=== PATIENT | male | born 2000 | race Caucasian/White ===

== ENCOUNTER 2020-01-03 08:17 | Emergency (ER) | payer OTHER ==
--- NOTE | 2020-01-03 09:22 | RAD REPORT ---
EXAM DESCRIPTION: RAD - Elbow Left 3 View - 01/03/2020 8:59 am CLINICAL HISTORY: Left elbow pain status post trauma FINDINGS: Minimally displaced radial head/ neck fracture No dislocation
--- NOTE | 2020-01-03 09:26 | RAD REPORT ---
EXAM DESCRIPTION: RAD - Forearm Left - 01/03/2020 8:59 am CLINICAL HISTORY: Left forearm pain status post injury FINDINGS: Minimally displaced fracture radial head/neck No dislocation
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
[2020-01-03] MEDS ORDERED: HYDROCODONE/APAP 7.5/325 MG TAB ONE (09:39)
[2020-01-03 10:25] VITALS: BP 147/87; TEMP 98.1; O2SAT 100
== END 2020-01-03 10:21 | disposition home or self-care (01) ==
LOC: ER 08:17
PROC: 0PSJXZZ Reposition Left Radius, External Approach (ICD-10-PCS; principal; 2020-01-03)
DX: S52.122A Displaced fracture of head of left radius, initial encounter for closed fracture (principal); W01.0XXA Fall on same level from slipping, tripping and stumbling without subsequent striking against object, initial encounter; Y93.I9 Activity, other involving external motion; Y92.9 Unspecified place or not applicable
CPT/HCPCS: 99284

== ENCOUNTER 2021-03-31 09:54 | Emergency (ER) | payer BC, OTHER ==
[2021-03-31] MEDS ORDERED: ALBUTEROL 2.5 MG/3 ML NEB SOL ONE (10:37)
[2021-03-31] MEDS ORDERED: IPRATROPIUM BROM 0.5MG/2.5ML ONE (10:37)
[2021-03-31] MEDS ORDERED: predniSONE 20 MG TAB ONE (10:37)
--- NOTE | 2021-03-31 11:38 | EDPHYS ---
Physician Documentation [facility] Name: Lele Fleming Age: 21 yrs Sex: Male : 2000 Arrival Date: 03/31/2021 Time: 09:58 Bed 6 Private MD: ED Physician Meeta Ch HPI: 03/31 10:37 This 21 yrs old Male presents to ER via Ambulatory with complaints of Asthma ma2 Exacerbation. 10:37 The patient presents to the emergency department with wheezing, the patient was ma2 reported to have wheezes. Onset: The symptoms/episode began/occurred gradually, 1 day(s) ago. Associated signs and symptoms: Pertinent negatives: fever, palpitations, vomiting. Severity of symptoms: At their worst the symptoms were moderate in the emergency department the symptoms are unchanged. The patient has not experienced similar symptoms in the past. Historical: - Allergies: 10:17 No Known Allergies; vg1 - Home Meds: 10:17 None [Active]; vg1 - PMHx: 10:17 Asthma; vg1 - PSHx: 10:17 None; vg1 - Immunization history:: Adult Immunizations up to date, Client reports receiving the Jeffery \T\ Jeffery single-dose vaccine. - Social history:: Smoking status: Patient denies any tobacco usage or history of. Patient/guardian denies using alcohol, street drugs, The patient lives with family. - Family history:: not pertinent. ROS: 10:37 Constitutional: Negative for fever, chills, and weight loss. ma2 10:37 All other systems are negative. Exam: 10:37 Constitutional: This is a well developed, well nourished patient who is awake, alert, ma2 and in no acute distress. Head/Face: Normocephalic, atraumatic. Eyes: Pupils equal round and reactive to light, extra-ocular motions intact. Lids and lashes normal. Conjunctiva and sclera are non-icteric and not injected. Cornea within normal limits. Periorbital areas with no swelling, redness, or edema. ENT: Nares patent. No nasal discharge, no septal abnormalities noted. Tympanic membranes are normal and external auditory canals are clear. Oropharynx with no redness, swelling, or masses, exudates, or evidence of obstruction, uvula midline. Mucous membranes moist. Neck: Trachea midline, no thyromegaly or masses palpated, and no cervical lymphadenopathy. Supple, full range of motion without nuchal rigidity, or vertebral point tenderness. No Meningismus. Chest/axilla: Normal chest wall appearance and motion. Nontender with no deformity. No lesions are appreciated. Cardiovascular: Regular rate and rhythm with a normal S1 and S2. No gallops, murmurs, or rubs. Normal PMI, no JVD. No pulse deficits. Respiratory: Lungs have equal breath sounds bilaterally, clear to auscultation and percussion. No rales, rhonchi or wheezes noted. No increased work of breathing, no retractions or nasal flaring. Abdomen/GI: Soft, non-tender, with normal bowel sounds. No distension or tympany. No guarding or rebound. No evidence of tenderness throughout. Skin: Warm, dry with normal turgor. Normal color with no rashes, no lesions, and no evidence of cellulitis. MS/ Extremity: Pulses equal, no cyanosis. Neurovascular intact. Full, normal range of motion. Neuro: Awake and alert, GCS 15, oriented to person, place, time, and situation. Cranial nerves II-XII grossly intact. Motor strength 5/5 in all extremities. Sensory grossly intact. Cerebellar exam normal. Normal gait. Vital Signs: 10:15 BP 120 / 100; Pulse 100; Resp 14; Temp 99.2(TE); Pulse Ox 96% ; Weight 113.4 kg; Height vg1 6 ft. 3 in. (190.50 cm); Pain 4/10; 11:13 BP 122 / 88; Pulse 109; Resp 20; Pulse Ox 96% ; jh5 10:15 Body Mass Index 31.25 (113.40 kg, 190.50 cm) vg1 MDM: 10:08 Patient medically screened. hi2 10:37 Differential diagnosis: acute asthma, exercise-induced asthma, reactive airway, URI. ma2 11:37 Data reviewed: vital signs, nurses notes. Counseling: I had a detailed discussion with ma2 the patient and/or guardian regarding: the historical points, exam findings, and any diagnostic results supporting the discharge/admit diagnosis, the presence of at least one elevated blood pressure reading (>120/80) during this emergency department visit, the need for outpatient follow up. Response to treatment: the patient's symptoms have markedly improved after treatment. Administered Medications: 10:43 Drug: DuoNeb (albuterol 2.5 mg, ipratropium 0.5 mg) (3:1) (2.5 mg - 0.5 mg) 3 ml Route: jh5 Nebulizer; 10:43 Drug: predniSONE 40 mg Route: PO; jh5 Disposition Summary: 03/31/21 11:37 Discharge Ordered Location: Home ma2 Condition: Stable ma2 Diagnosis - Mild intermittent asthma ma2 Followup: ma2 - With: Private Physician - When: 24 Hours - Reason: Continuance of care Discharge Instructions: - Discharge Summary Sheet ma2 - Asthma Attack ma2 Forms: - Medication Reconciliation Form ma2 - Thank You Letter ma2 - Antibiotic Education ma2 - Prescription Opioid Use ma2 Prescriptions: - Albuterol Sulfate 2.5 mg /3 mL (0.083 %) Inhalation Solution for Nebulization - inhale 1 unit by NEBULIZATION route every 8 hours As needed; 1 box; Refills: 0, ma2 Product Selection Permitted - Prednisone 20 mg Oral Tablet - take 2 tablets by ORAL route once daily for 5 days; 10 tablet; Refills: 0, ma2 Product Selection Permitted - NEBULIZER machine - take 1 unit by NEBULIZATION route 3 times per day; 1 Unspecified; Refills: 0, ma2 Product Selection Permitted Signatures: Meeta Ch MD MD ma2 Megha Ayoub RN RN vg1 Annie Almeida RN RN jh5
--- NOTE | 2021-03-31 11:38 | ER ---
Nurse's Notes [facility] Name: Lele Fleming Age: 21 yrs Sex: Male : 2000 Arrival Date: 03/31/2021 Time: 09:58 Bed 6 Private MD: Diagnosis: Mild intermittent asthma Presentation: 03/31 10:15 Chief complaint: Patient states: Productive cough began yesterday. Pt states today vg1 about an hour ago began to feel shortness of breath/difficulty breathing. States took inhaler but feels like it isnt working. Pt also stated mid sternal chest pain. Coronavirus screen: Vaccine status: Patient reports receiving the 2nd dose of the covid vaccine. Client denies travel out of the [place] in the last 14 days. Ebola Screen: Patient negative for fever greater than or equal to 101.5 degrees Fahrenheit, and additional compatible Ebola Virus Disease symptoms. Initial Sepsis Screen: Does the patient meet any 2 criteria? No. Patient's initial sepsis screen is negative. Does the patient have a suspected source of infection? No. Patient's initial sepsis screen is negative. Risk Assessment: Do you want to hurt yourself or someone else? Patient reports no desire to harm self or others. Onset of symptoms was March 31, 2021. 10:15 Method Of Arrival: Ambulatory vg1 10:15 Acuity: TAD 3 vg1 Triage Assessment: 10:17 General: Appears in no apparent distress. comfortable, Behavior is calm, cooperative. vg1 Pain: Complains of pain in mid-sternal area Pain currently is 4 out of 10 on a pain scale. Respiratory: Airway is patent Respiratory effort is even, unlabored, Respiratory pattern is regular. Historical: - Allergies: 10:17 No Known Allergies; vg1 - Home Meds: 10:17 None [Active]; vg1 - PMHx: 10:17 Asthma; vg1 - PSHx: 10:17 None; vg1 - Immunization history:: Adult Immunizations up to date, Client reports receiving the Jeffery \T\ Jeffery single-dose vaccine. - Social history:: Smoking status: Patient denies any tobacco usage or history of. Patient/guardian denies using alcohol, street drugs, The patient lives with family. - Family history:: not pertinent. Screenin:20 Abuse screen: Denies threats or abuse. Denies injuries from another. Nutritional 5 screening: No deficits noted. Tuberculosis screening: No symptoms or risk factors identified. Fall Risk None identified. Assessment: 10:17 General: Appears in no apparent distress. well groomed, Behavior is calm, cooperative, jh5 appropriate for age. Neuro: No deficits noted. Level of Consciousness is awake, alert, obeys commands, Oriented to person, place, time, situation, Speech is normal. Cardiovascular: Capillary refill < 3 seconds Patient's skin is warm and dry. Respiratory: Reports shortness of breath at rest on exertion Airway is patent Trachea midline Respiratory effort is even, labored, Respiratory pattern is regular, symmetrical. 10:19 Pain: Complains of pain in chest. 5 Vital Signs: 10:15 BP 120 / 100; Pulse 100; Resp 14; Temp 99.2(TE); Pulse Ox 96% ; Weight 113.4 kg; Height vg1 6 ft. 3 in. (190.50 cm); Pain 4/10; 11:13 BP 122 / 88; Pulse 109; Resp 20; Pulse Ox 96% ; jh5 10:15 Body Mass Index 31.25 (113.40 kg, 190.50 cm) vg1 ED Course: 09:58 Patient arrived in ED. ds1 10:08 Meeta Ch MD is Attending Physician. wi2 10:17 Annie Almeida, LYNN is Primary Nurse. 5 10:17 Triage completed. vg1 10:17 Arm band placed on. vg1 10:20 Patient has correct armband on for positive identification. Bed in low position. Call [facility] light in reach. Side rails up X 1. 11:48 No provider procedures requiring assistance completed. Patient did not have IV access [facility] during this emergency room visit. Administered Medications: 10:43 Drug: DuoNeb (albuterol 2.5 mg, ipratropium 0.5 mg) (3:1) (2.5 mg - 0.5 mg) 3 ml Route: 5 Nebulizer; 10:43 Drug: predniSONE 40 mg Route: PO; 5 Outcome: 11:37 Discharge ordered by . ma2 11:48 Discharged to home ambulatory, with family. 5 11:48 Condition: good 11:48 Discharge instructions given to patient, family, Instructed on discharge instructions, follow up and referral plans. medication usage, safety practices, Demonstrated understanding of instructions, follow-up care, medications, Prescriptions given X 3. 11:49 Patient left the ED. [facility] Signatures: Lisseth Luna Mohammad, MD MD ma2 Megha Ayoub, RN RN vg1 Annie Almeida RN RN jh5 Corrections: (The following items were deleted from the chart) 10:20 10:17 Pain: Denies pain. [place] [id number]
[2021-03-31 13:04] VITALS: TEMP 99.2; O2SAT 96
[2021-03-31 13:14] VITALS: BP 122/88
--- OUTSIDE RECORDS SUMMARY | 2021-04-03 18:58 | XMS REPORT | Continuity of Care Document ---
:2000 Author Organization [facility] Address [address] [place] [address] Care Team Providers Name Role Phone Fiona Payne Attending Clinician Fiona DUARTE Attending Clinician Unavailable Doctor Unassigned, Name Attending Clinician Unavailable Payers Payer Name Policy Type Policy Number Effective Date Expiration Date S alicia [employer] [id number] 2020 00:00:00 Problems Condition Condition Condition Status Onset Resolution Last Treating Co mments Source Name Details Category Date Date Treatment Clinician Date Depression Depression Disease Active U nivers 6- ity of 00:00: [address] Allergies, Adverse Reactions, Alerts Allergy Allergy Status Severity Reaction(s) Onset Inactive Treating Comm ents Source Name Type Date Date Clinician NO KNOWN Drug Active Univers ALLERGIE Class ity of [facility] Social History Social Habit Start Date Stop Date Quantity Comments Source Sex Assigned At [facility] Exposure to Not sure [facility] SARS-CoV-2 (event) Medica l Branch Tobacco use and 2020-02-06 2020-02-06 Never used [facility] exposure 00:00:00 00:00:00 Medical [place] Smoking Status Start Date Stop Date Source Never smoker [facility] Medications Ordered Filled Start Stop Current Ordering Indication Dosage Frequency Signature Comments Components Source Medication Medication Date Date Medication? Clinician (SIG) Name Name SERTraline 2020-0 Yes 50mg Take 50 mg U nivers (ZOLOFT) 50 8-18 by mouth ity of mg tablet 20:07: daily. [address] SERTraline 2020-0 Yes 50mg Take 50 mg U nivers (ZOLOFT) 50 8-18 by mouth ity of mg tablet 20:07: daily. [address] SERTraline 2020-0 Yes 50mg Take 50 mg U nivers (ZOLOFT) 50 8-18 by mouth ity of mg tablet 20:07: daily. [address] SERTraline 2020-0 Yes 50mg Take 50 mg U nivers (ZOLOFT) 50 8-18 by mouth ity of mg tablet 20:07: daily. [address] SERTraline 2020-0 Yes 50mg Take 50 mg U nivers (ZOLOFT) 50 8-18 by mouth ity of mg tablet 20:07: daily. [address] SERTraline 2020-0 Yes 50mg Take 50 mg U nivers (ZOLOFT) 50 8-18 by mouth ity of mg tablet 20:07: daily. [address] SERTraline 2020-0 Yes 50mg Take 50 mg U nivers (ZOLOFT) 50 8-18 by mouth ity of mg tablet 20:07: daily. [address] SERTraline 2020-0 Yes 50mg Take 50 mg U nivers (ZOLOFT) 50 8-18 by mouth ity of mg tablet 20:07: daily. [address] SERTraline 2020-0 Yes 50mg Take 50 mg U nivers (ZOLOFT) 50 8-18 by mouth ity of mg tablet 20:07: daily. [address] SERTraline 2020-0 Yes 50mg Take 50 mg U nivers (ZOLOFT) 50 8-18 by mouth ity of mg tablet 20:07: daily. [address] SERTraline 2020-0 Yes 50mg Take 50 mg U nivers (ZOLOFT) 50 8-18 by mouth ity of mg tablet 20:07: daily. [address] ibuprofen 2020-0 Yes TK 1 T PO Uni vers 800 mg 8-14 Q 8 H PRN ity of tablet 00:00: FOR PAIN [place] [address] CONTROL Medical TKA WITH Branch FOOD ibuprofen 2020-0 Yes TK 1 T PO Uni vers 800 mg 8-14 Q 8 H PRN ity of tablet 00:00: FOR PAIN [place] [address] CONTROL Medical TKA WITH Branch FOOD ibuprofen 2020-0 Yes TK 1 T PO Uni vers 800 mg 8-14 Q 8 H PRN ity of tablet 00:00: FOR PAIN [place] [address] CONTROL Medical TKA WITH Branch FOOD ibuprofen 2020-0 Yes TK 1 T PO Uni vers 800 mg 8-14 Q 8 H PRN ity of tablet 00:00: FOR PAIN [place] [address] CONTROL Medical TKA WITH Branch FOOD ibuprofen 2020-0 Yes TK 1 T PO Uni vers 800 mg 8-14 Q 8 H PRN ity of tablet 00:00: FOR PAIN CONTROL Medical TKA WITH Branch FOOD ibuprofen 2020-0 Yes TK 1 T PO Uni vers 800 mg 8-14 Q 8 H PRN ity of tablet 00:00: FOR PAIN CONTROL Medical TKA WITH Branch FOOD ibuprofen 2020-0 Yes TK 1 T PO Uni vers 800 mg 8-14 Q 8 H PRN ity of tablet 00:00: FOR PAIN CONTROL Medical TKA WITH Branch FOOD ibuprofen 2020-0 Yes TK 1 T PO Uni vers 800 mg 8-14 Q 8 H PRN ity of tablet 00:00: FOR PAIN CONTROL Medical TKA WITH Branch FOOD ibuprofen 2020-0 Yes TK 1 T PO Uni vers 800 mg 8-14 Q 8 H PRN ity of tablet 00:00: FOR PAIN CONTROL Medical TKA WITH Branch FOOD ibuprofen 2020-0 Yes TK 1 T PO Uni vers 800 mg 8-14 Q 8 H PRN ity of tablet 00:00: FOR PAIN CONTROL Medical TKA WITH Branch FOOD ibuprofen 2020-0 Yes TK 1 T PO Uni vers 800 mg 8-14 Q 8 H PRN ity of tablet 00:00: FOR PAIN CONTROL Medical TKA WITH Branch FOOD VENTOLIN 2017 Yes [id number] INHALE 3 Univers HFA 90 2-04 PUFFS ity of mcg/actuati 00:00: EVERY 4 Abdifatah as on inhaler 00 HOURS Medic al NEEDED FOR Branch WHEEZING OR SHORTNESS OF BREATH FOR UP TO 7 DAYS VENTOLIN 2017 Yes [id number] INHALE 3 Univers HFA 90 2-04 PUFFS ity of mcg/actuati 00:00: EVERY 4 Abdifatah as on inhaler 00 HOURS Medic al NEEDED FOR Branch WHEEZING OR SHORTNESS OF BREATH FOR UP TO 7 DAYS VENTOLIN 2017- Yes [id number] INHALE 3 Univers HFA 90 2-04 PUFFS ity of mcg/actuati 00:00: EVERY 4 Abdifatah as on inhaler 00 HOURS Medic al NEEDED FOR Branch WHEEZING OR SHORTNESS OF BREATH FOR UP TO 7 DAYS VENTOLIN 2017- Yes [id number] INHALE 3 Univers HFA 90 2-04 PUFFS ity of mcg/actuati 00:00: EVERY 4 Abdifatah as on inhaler 00 HOURS Medic al NEEDED FOR Branch WHEEZING OR SHORTNESS OF BREATH FOR UP TO 7 DAYS [facility] 2017 Yes [id number] INHALE 3 Univers HFA 90 2-04 PUFFS ity of mcg/actuati 00:00: EVERY 4 Abdifatah as on inhaler 00 HOURS Medic al NEEDED FOR Branch WHEEZING OR SHORTNESS OF BREATH FOR UP TO 7 DAYS [facility] 2017 Yes [id number] INHALE 3 Univers HFA 90 2-04 PUFFS ity of mcg/actuati 00:00: EVERY 4 Abdifatah as on inhaler 00 HOURS Medic al NEEDED FOR Branch WHEEZING OR SHORTNESS OF BREATH FOR UP TO 7 DAYS [facility] 2017 Yes [id number] INHALE 3 Univers HFA 90 2-04 PUFFS ity of mcg/actuati 00:00: EVERY 4 Abdifatah as on inhaler 00 HOURS Medic al NEEDED FOR Branch WHEEZING OR SHORTNESS OF BREATH FOR UP TO 7 DAYS [facility] 2017 Yes [id number] INHALE 3 Univers HFA 90 2-04 PUFFS ity of mcg/actuati 00:00: EVERY 4 Abdifatah as on inhaler 00 HOURS Medic al NEEDED FOR Branch WHEEZING OR SHORTNESS OF BREATH FOR UP TO 7 DAYS [facility] 2017 Yes [id number] INHALE 3 Univers HFA 90 2-04 PUFFS ity of mcg/actuati 00:00: EVERY 4 Abdifatah as on inhaler 00 HOURS Medic al NEEDED FOR Branch WHEEZING OR SHORTNESS OF BREATH FOR UP TO 7 DAYS [facility] 2017 Yes [id number] INHALE 3 Univers HFA 90 2-04 PUFFS ity of mcg/actuati 00:00: EVERY 4 Abdifatah as on inhaler 00 HOURS Medic al NEEDED FOR Branch WHEEZING OR SHORTNESS OF BREATH FOR UP TO 7 DAYS [facility] 2017 Yes [id number] INHALE 3 Univers HFA 90 2-04 PUFFS ity of mcg/actuati 00:00: EVERY 4 Abdifatah as on inhaler 00 HOURS Medic al NEEDED FOR Branch WHEEZING OR SHORTNESS OF BREATH FOR UP TO 7 DAYS OLANZapine 2016-0 Yes Univers (ZYPREXA) 4-29 ity of 20 mg 00:00: [place] tablet 00 Medical Branch OLANZapine 2016-0 Yes Univers (ZYPREXA) 4-29 ity of 20 mg 00:00: [place] tablet 00 Medical Branch OLANZapine 2016-0 Yes Univers (ZYPREXA) 4-29 ity of 20 mg 00:00: [place] tablet 00 Medical Branch OLANZapine 2016-0 Yes Univers (ZYPREXA) 4-29 ity of 20 mg 00:00: [place] tablet 00 Medical Branch OLANZapine 2016-0 Yes Univers (ZYPREXA) 4-29 ity of 20 mg 00:00: [place] tablet 00 Medical Branch OLANZapine 2016-0 Yes Univers (ZYPREXA) 4-29 ity of 20 mg 00:00: [place] tablet 00 Medical Branch OLANZapine 2016-0 Yes Univers (ZYPREXA) 4-29 ity of 20 mg 00:00: [place] tablet 00 Medical Branch OLANZapine 2016-0 Yes Univers (ZYPREXA) 4-29 ity of 20 mg 00:00: [place] tablet 00 Medical Branch OLANZapine 2016-0 Yes Univers (ZYPREXA) 4-29 ity of 20 mg 00:00: [place] tablet 00 Medical Branch OLANZapine 2016-0 Yes Univers (ZYPREXA) 4-29 ity of 20 mg 00:00: [place] tablet 00 Medical Branch OLANZapine 2016-0 Yes Univers (ZYPREXA) 4-29 ity of 20 mg 00:00: [place] tablet 00 Medical Branch benztropine 2016-0 Yes Univer s (COGENTIN) 4-28 ity of 2 mg tablet 00:00: [place] [facility] Branch benztropine 2016-0 Yes Univer s (COGENTIN) 4-28 ity of 2 mg tablet 00:00: [place] [facility] Branch benztropine 2016-0 Yes Univer s (COGENTIN) 4-28 ity of 2 mg tablet 00:00: [place] [facility] Branch benztropine 2016-0 Yes Univer s (COGENTIN) 4-28 ity of 2 mg tablet 00:00: [place] [facility] Branch benztropine 2016-0 Yes Univer s (COGENTIN) 4-28 ity of 2 mg tablet 00:00: [place] [facility] Branch benztropine 2016-0 Yes Univer s (COGENTIN) 4-28 ity of 2 mg tablet 00:00: [place] [facility] benztropine 2016-0 Yes Univer s (COGENTIN) 4-28 ity of 2 mg tablet 00:00: [place] [facility] Branch benztropine 2016-0 Yes Univer s (COGENTIN) 4-28 ity of 2 mg tablet 00:00: [place] 00 [facility] benztropine 2016 Yes Univer s (COGENTIN) 4-28 ity of 2 mg tablet 00:00: [place] [facility] benztropine 2016- Yes Univer s (COGENTIN) 4-28 ity of 2 mg tablet 00:00: [address] benztropine 2016 Yes Univer s (COGENTIN) 4-28 ity of 2 mg tablet 00:00: [address] Immunizations Ordered Immunization Filled Immunization Date Status Commen ts Source Name Name Influenza Virus 2017-05-31 Completed Universit y of Vaccine Quad IM 3+ 00:00:00 [facility] Influenza Virus 2017-05-31 Completed Universit y of Vaccine Quad IM 3+ 00:00:00 [facility] Influenza Virus 2017-05-31 Completed Universit y of Vaccine Quad IM 3+ 00:00:00 [facility] Influenza Virus 2017-05-31 Completed Universit y of Vaccine Quad IM 3+ 00:00:00 [facility] Influenza Virus 2017-05-31 Completed Universit y of Vaccine Quad IM 3+ 00:00:00 [facility] Influenza Virus 2017-05-31 Completed Universit y of Vaccine Quad IM 3+ 00:00:00 [facility] Influenza Virus 2017-05-31 Completed Universit y of Vaccine Quad IM 3+ 00:00:00 [facility] Influenza Virus 2017-05-31 Completed Universit y of Vaccine Quad IM 3+ 00:00:00 [facility] Influenza Virus 2017-05-31 Completed Universit y of Vaccine Quad IM 3+ 00:00:00 [facility] Influenza Virus 2017-05-31 Completed Universit y of Vaccine Quad IM 3+ 00:00:00 [facility] Influenza Virus 2017-05-31 Completed Universit y of Vaccine Quad IM 3+ 00:00:00 [facility] HPV9 2015-10-23 Completed University of 00:00:00 [facility] Meningococcal 2015-10-23 Completed University [facility] 00:00:00 [facility] arpan (groups A, C, Y and Branc h W-135) conjugate vaccine (MCV4P) HEPATITIS A 2015-10-23 Completed University of 00:00:00 [facility] Meningococcal B, OMV 2015-10-23 Completed Univ [facility] 00:00:00 [facility] HPV9 2015-10-23 Completed University of 00:00:[address] [facility] Branch Meningococcal 2015-10-23 Completed University of Polysaccharide 00:00:00 [place] Med[facility] arpan (groups A, C, Y and Branc h W-135) conjugate vaccine (MCV4P) HEPATITIS A 2015-10-23 Completed University of 00:00:[address] [facility] Meningococcal B, OMV 2015-10-23 Completed Univ ersity of 00:00:00 [place] [facility] HPV9 2015-10-23 Completed University of 00:00:[address] [facility] Meningococcal 2015-10-23 Completed University of Polysaccharide 00:00:00 [place] Medi arpan (groups A, C, Y and Branc h W-135) conjugate vaccine (MCV4P) HEPATITIS A 2015-10-23 Completed University of 00:00:[address] [facility] Meningococcal B, OMV 2015-10-23 Completed Univ ersity of 00:00:[address] [facility] HPV9 2015-10-23 Completed University of 00:00:[address] [facility] Meningococcal 2015-10-23 Completed University of Polysaccharide 00:00:00 [place] Medi arpan (groups A, C, Y and Branc h W-135) conjugate vaccine (MCV4P) HEPATITIS A 2015-10-23 Completed University of 00:00:[address] [facility] Meningococcal B, OMV 2015-10-23 Completed Univ ersity of 00:00:[address] [facility] HPV9 2015-10-23 Completed University of 00:00:[address] [facility] Meningococcal 2015-10-23 Completed University of Polysaccharide 00:00:00 [place] Medi arpan (groups A, C, Y and Branc h W-135) conjugate vaccine (MCV4P) HEPATITIS A 2015-10-23 Completed University of 00:00:[address] [facility] Meningococcal B, OMV 2015-10-23 Completed Univ ersity of 00:00:[address] [facility] HPV9 2015-10-23 Completed University of 00:00:[address] [facility] Meningococcal 2015-10-23 Completed University of Polysaccharide 00:00:00 [place] Medi arpan (groups A, C, Y and Branc h W-135) conjugate vaccine (MCV4P) HEPATITIS A 2015-10-23 Completed University of 00:00:[address] [facility] Meningococcal B, OMV 2015-10-23 Completed Univ ersity of 00:00:[address] [facility] HPV9 2015-10-23 Completed University of 00:00:00 [facility] Meningococcal 2015-10-23 Completed University of Polysaccharide 00:00:00 [place] Medi arpan (groups A, C, Y and Branc h W-135) conjugate vaccine (MCV4P) HEPATITIS A 2015-10-23 Completed University of 00:00:00 [facility] Meningococcal B, OMV 2015-10-23 Completed Univ ersity of 00:00:[address] [facility] HPV9 2015-10-23 Completed University of 00:00:[address] [facility] Meningococcal 2015-10-23 Completed University of Polysaccharide 00:00:00 [place] Medi arpan (groups A, C, Y and Branc h W-135) conjugate vaccine (MCV4P) HEPATITIS A 2015-10-23 Completed University of 00:00:00 [facility] Meningococcal B, OMV 2015-10-23 Completed Univ ersity of 00:00:[address] [facility] HPV9 2015-10-23 Completed University of 00:00:00 [facility] Meningococcal 2015-10-23 Completed University of Polysaccharide 00:00:00 [place] Medi arpan (groups A, C, Y and Branc h W-135) conjugate vaccine (MCV4P) HEPATITIS A 2015-10-23 Completed University of 00:00:00 [facility] Meningococcal B, OMV 2015-10-23 Completed Univ ersity of 00:00:[address] [facility] HPV9 2015-10-23 Completed University of 00:00:00 [facility] Meningococcal 2015-10-23 Completed University of Polysaccharide 00:00:00 [place] Medi arpan (groups A, C, Y and Branc h W-135) conjugate vaccine (MCV4P) HEPATITIS A 2015-10-23 Completed University of 00:00:00 [facility] Meningococcal B, OMV 2015-10-23 Completed Univ ersity of 00:00:[address] [facility] HPV9 2015-10-23 Completed University of 00:00:00 [facility] Meningococcal 2015-10-23 Completed University of Polysaccharide 00:00:00 [place] Med[facility] arpan (groups A, C, Y and Branc h W-135) conjugate vaccine (MCV4P) HEPATITIS A 2015-10-23 Completed University of 00:00:[address] [facility] Meningococcal B, OMV 2015-10-23 Completed Univ ersity of 00:00:00 [place] [facility] HEPATITIS A 2014-11-20 Completed University of 00:00:00 [place] [facility] HPV 2014-11-20 Completed University of 00:00:00 [place] [facility] HEPATITIS A 2014-11-20 Completed University of 00:00:00 [place] [facility] HPV 2014-11-20 Completed University of 00:00:00 [place] [facility] HEPATITIS A 2014-11-20 Completed University of 00:00:00 [place] [facility] HPV 2014-11-20 Completed University of 00:00:00 [place] [facility] HEPATITIS A 2014-11-20 Completed University of 00:00:00 [place] [facility] HPV 2014-11-20 Completed University of 00:00:00 [place] [facility] HEPATITIS A 2014-11-20 Completed University of 00:00:00 [place] [facility] HPV 2014-11-20 Completed University of 00:00:00 [place] [facility] HEPATITIS A 2014-11-20 Completed University of 00:00:00 [place] [facility] HPV 2014-11-20 Completed University of 00:00:00 [place] [facility] HEPATITIS A 2014-11-20 Completed University of 00:00:00 [place] [facility] HPV 2014-11-20 Completed University of 00:00:00 [place] [facility] HEPATITIS A 2014-11-20 Completed University of 00:00:00 [place] [facility] HPV 2014-11-20 Completed University of 00:00:00 [place] [facility] HEPATITIS A 2014-11-20 Completed University of 00:00:00 [place] [facility] HPV 2014-11-20 Completed University of 00:00:00 [place] [facility] HEPATITIS A 2014-11-20 Completed University of 00:00:00 [place] [facility] HPV 2014-11-20 Completed University of 00:00:00 [place] [facility] HEPATITIS A 2014-11-20 Completed University of 00:00:00 [place] [facility] HPV 2014-11-20 Completed University of 00:00:[address] [facility] Vital Signs Vital Name Observation Time Observation Value Comments Source Systolic blood 2020-02-06 18:51:00 139 mm[Hg] [facility]iver [facility]ity of [place] pressure Medical Branch Diastolic blood 2020-02-06 18:51:00 87 mm[Hg] Unive rsity [facility] pressure Medical Branch Heart rate 2020-02-06 18:51:00 109 /min [facility] Body height 2020-02-06 18:51:00 190.5 cm [facility] Body weight 2020-02-06 18:51:00 116.574 kg Universi ty [facility] [place] [facility] BMI 2020-02-06 18:51:00 32.12 kg/m2 [facility] [place] [facility] Systolic blood 2020-01-14 18:41:00 137 mm[Hg] Univer sity of [place] pressure Medical Branch Diastolic blood 2020-01-14 18:41:00 86 mm[Hg] Unive rsity of [place] pressure [facility] Branch Heart rate 2020-01-14 18:41:00 111 /min Universi ty of [facility] Body height 2020-01-14 18:30:00 190.5 cm Universi ty [facility] [place] [facility] Body weight 2020-01-14 18:30:00 116.574 kg Universi ty [facility] [place] [facility] BMI 2020-01-14 18:30:00 32.12 kg/m2 Universi ty of [facility] Systolic blood 2020-01-07 20:06:00 135 mm[Hg] Univer sity of [place] pressure Medical Branch Diastolic blood 2020-01-07 20:06:00 82 mm[Hg] Unive rsity of [facility] Branch Heart rate 2020-01-07 20:06:00 90 /min Universi ty [facility] [place] [facility] Body height 2020-01-07 20:06:00 190.5 cm [facility]i [facility] [place] [facility] Body weight 2020-01-07 20:06:00 116.574 kg stated Universi ty of [facility] BMI 2020-01-07 20:06:00 32.12 kg/m2 Universi ty of [facility] Procedures Procedure Date / Time Performed Performing Clinician Sourc e XR ELBOW <3 VW LEFT 2020-02-06 19:07:39 Mono Duarte Universi ty of [facility] XR ELBOW <3 VW LEFT 2020-01-14 18:41:10 Mono Duarte Universi ty [facility] EXTERNAL PROVIDER 2020-01-09 05:01:00 Doctor Unassigned, No Univ [facility] RECORDS Name Medical Branch Encounters Start End Encounter Admission Attending Care Care Encounter Source Date/Time Date/Time Type Type Clinicians Facility Department ID 2020-08-29 2020-08-29 Outpatient [facility] [id number] Univers 14:50:00 14:50:00 [id number] ity [facility] 2020-08-29 2020-08-29 Outpatient [facility] [id number] Univers 14:50:00 14:50:00 ity of [facility] 2020-08-08 2020-08-08 Outpatient [facility] [id number] Univers 14:55:00 14:55:00 ity of [facility] 2020-02-06 2020-02-06 [facility] [id number] Univers 14:07:38 23:59:00 [facility] [id number] ity of Surgical [id number] Abdifatah as Specialti [id number] Me dical es 8[address] [facility] 2020-02-06 2020-02-06 Office [facility] [id number] Univers 13:42:49 13:57:49 [facility] [id number] it y of Surgical [id number] Abdifatah as Specialti [id number] Me dical es 198 [facility] 2020-02-06 2020-02-06 Outpatient R [facility] [id number] Univers 13:45:00 13:45:00 MONO [id number] ity of [facility] 2020-02-06 2020-02-06 Outpatient [facility] [id number] Univers 13:45:00 13:45:00 MONO ity [facility] 2020-02-06 2020-02-06 Letter [facility] [id number] Univers 00:00:00 00:00:00 (Out) [facility] [id number] it y of Surgical [id number] Abdifatah as Specialti [id number] Me dical es 198 [facility] 2020-01-14 2020-01-14 [facility] [id number] Univers 13:41:08 23:59:00 [facility]counter [facility] [id number] ity of Surgical [id number] Abdifatah as Specialti [id number] Me dical es 809 [facility] 2020-01-14 2020-01-14 Office [facility] [id number] Univers 13:29:01 13:44:01 Visit [facility] [id number] it y of Surgical [id number] Abdifatah as Specialti [id number] Oh dical es 198 [facility] 2020-01-14 2020-01-14 Outpatient R GERALD [facility] [id number] Univers 13:30:00 13:30:00 MONO [id number] ity [facility] 2020-01-14 2020-01-14 [facility] [id number] Univers 13:30:00 13:30:00 [facility] 2020-01-14 2020-01-14 Letter Gerald [facility] [id number] Univers 00:00:00 00:00:00 (Out) [facility] [id number] it y of Surgical [id number] Abdifatah as Specialti [id number] Oh dical es 198 [facility] 2020-01-09 2020-01-09 Orders Doctor BRAD [id number] Univers 00:00:00 00:00:00 Only Unassigned, CHAVO [id number] ity of [place] [facility] [id number] Abdifatah as [id number] [address] 2020-01-07 2020-01-[address] [facility] [id number] Univers 14:44:46 16:05:00 Visit [facility] [id number] it y of Surgical [id number] Abdifatah as Specialti [id number] Oh dical es 198 [facility] 2020-01-07 2020-01-07 [facility] [id number] Univers 14:30:00 14:30:00 [facility] Results Test Description Test Time Test Comments Results Result Sour e Comments XR ELBOW <3 VW 2020-02-06 His radial head Unive rsity of LEFT 19:18:53 fracture shows [facility] excellent signs Branch of callus formation there was no displacement his radial capitellar joint has a normal spacing. XR ELBOW <3 VW 2020-01-14 Radial head Universit y of LEFT 18:55:52 fracture remains [place] [facility] in normal Branch alignment he has a balance between the radial head and the capitellum
== END 2021-03-31 11:49 | disposition home or self-care (01) ==
LOC: ER 09:54
DX: J45.20 Mild intermittent asthma, uncomplicated (principal)
CPT/HCPCS: 94640; 99284; J7512

== ENCOUNTER 2022-02-17 13:28 | Emergency (ER) | payer BC, OTHER ==
--- OUTSIDE RECORDS SUMMARY | 2022-02-17 13:33 | XMS REPORT | Continuity of Care Document ---
:[address] [facility] t Address [address] [place] [address] Care Team Providers Name Role Phone Lesli Payne Attending Clinician LESLI DUARTE Attending Clinician Unavailable Doctor Unassigned, [place] Attending Clinician Unavailable Payers Payer Name Policy Type Policy Number Effective Date Expiration Date S alicia [employer] [id number] 2020 00:00:00 Problems Condition Condition Condition Status Onset Resolution Last Treating Co mments Source Name Details Category Date Date Treatment Clinician Date Depression Depression Disease Active U nivers 6-03 ity of 00:00: [address] Allergies, Adverse Reactions, Alerts Allergy Allergy Status Severity Reaction(s) Onset Inactive Treating Comm ents Source Name Type Date Date Clinician NO KNOWN Drug Active [facility] ALLERGIE Class ity of [facility] Social History Social Habit Start Date Stop Date Quantity Comments Source Sex Assigned At [facility] Branch Exposure to Not sure [facility] SARS-CoV-2 (event) Medica l Branch Tobacco use and 2020-02-06 2020-02-06 Never used [facility] exposure 00:00:00 00:00:00 [facility] Smoking Status Start Date Stop Date Source Never smoker [facility] Medications Ordered Filled Start Stop Current Ordering Indication Dosage Frequency Signature Comments Components Source Medication Medication Date Date Medication? Clinician (SIG) Name Name SERTraline 2020-0 Yes 50mg Take 50 mg U nivers (ZOLOFT) 50 8-18 by mouth ity of mg tablet 20:07: daily. [address] SERTraline 2020-0 Yes 50mg Take 50 mg U nivers (ZOLOFT) 50 8-18 by mouth ity of mg tablet 20:07: daily. [address] SERTraline 2020-0 Yes 50mg Take 50 mg U nivers (ZOLOFT) 50 8-18 by mouth ity of mg tablet 20:07: daily. [address] SERTraline 2020-0 Yes 50mg Take 50 mg U nivers (ZOLOFT) 50 8-18 by mouth ity of mg tablet 20:07: daily. [address] SERTraline 2020-0 Yes 50mg Take 50 mg U nivers (ZOLOFT) 50 8-18 by mouth ity of mg tablet 20:07: daily. [address] SERTraline 2020-0 Yes 50mg Take 50 mg U nivers (ZOLOFT) 50 8-18 by mouth ity of mg tablet 20:07: daily. [address] SERTraline 2020-0 Yes 50mg Take 50 mg U nivers (ZOLOFT) 50 8-18 by mouth ity of mg tablet 20:07: daily. [address] SERTraline 2020-0 Yes 50mg Take 50 mg U nivers (ZOLOFT) 50 8-18 by mouth ity of mg tablet 20:07: daily. [address] SERTraline 2020-0 Yes 50mg Take 50 mg U nivers (ZOLOFT) 50 8-18 by mouth ity of mg tablet 20:07: daily. [address] SERTraline 2020-0 Yes 50mg Take 50 mg U nivers (ZOLOFT) 50 8-18 by mouth ity of mg tablet 20:07: daily. [address] SERTraline 2020-0 Yes 50mg Take 50 mg U nivers (ZOLOFT) 50 8-18 by mouth ity of mg tablet 20:07: daily. [address] ibuprofen 2020-0 Yes TK 1 T PO Uni vers 800 mg 8-14 Q 8 H PRN ity of tablet 00:00: FOR PAIN [place] CONTROL Medical TKA WITH Branch FOOD ibuprofen 2020-0 Yes TK 1 T PO Uni vers 800 mg 8-14 Q 8 H PRN ity of tablet 00:00: FOR PAIN [place] [address] CONTROL Medical TKA WITH Branch FOOD ibuprofen 2020-0 Yes TK 1 T PO Uni vers 800 mg 8-14 Q 8 H PRN ity of tablet 00:00: FOR PAIN [place] [address] CONTROL Medical TKA WITH Branch FOOD ibuprofen [...] CONTROL Medical TKA WITH Branch FOOD VENTOLIN 2016-05 Yes [id number] INHALE 3 Univers HFA 90 2-04 PUFFS ity of mcg/actuati 00:00: EVERY 4 Abdifatah as on inhaler 00 HOURS Medic al NEEDED FOR Branch WHEEZING OR SHORTNESS OF BREATH FOR UP TO 7 DAYS VENTOLIN 2017 Yes [id number] INHALE 3 Univers HFA 90 2-04 PUFFS ity of mcg/actuati 00:00: EVERY 4 Badifatah as on inhaler 00 HOURS Medic al NEEDED FOR Branch WHEEZING OR SHORTNESS OF BREATH FOR UP TO 7 DAYS VENTOLIN 2017- Yes [id number] INHALE 3 Univers HFA 90 2-04 PUFFS ity of mcg/actuati 00:00: EVERY 4 Abdifatah as on inhaler 00 HOURS Medic al NEEDED FOR Branch WHEEZING OR SHORTNESS OF BREATH FOR UP TO 7 DAYS VENTOLIN 2017 Yes [id number] INHALE 3 Univers HFA 90 2-04 PUFFS ity of mcg/actuati 00:00: EVERY 4 Abdifatah as on inhaler 00 HOURS Medic al NEEDED FOR Branch WHEEZING OR SHORTNESS OF BREATH FOR UP TO 7 DAYS [facility] 2017 Yes [id number] INHALE 3 Univers HFA 90 2-04 PUFFS ity of mcg/actuati 00:00: EVERY 4 Abdifatah as on inhaler 00 HOURS Medic al NEEDED FOR Branch WHEEZING OR SHORTNESS OF BREATH FOR UP TO 7 DAYS [facility] 2017 Yes [id number] INHALE 3 Univers HFA 90 2-04 PUFFS ity of mcg/actuati 00:00: EVERY 4 Abdifatah as on inhaler 00 HOURS Medic al NEEDED FOR Branch WHEEZING OR SHORTNESS OF BREATH FOR UP TO 7 DAYS [facility] 2017 Yes [id number] INHALE 3 Univers HFA 90 2-04 PUFFS ity of mcg/actuati 00:00: EVERY 4 Abdifatah as on inhaler 00 HOURS Medic al NEEDED FOR Branch WHEEZING OR SHORTNESS OF BREATH FOR UP TO 7 DAYS [facility] 2017 Yes [id number] INHALE 3 Univers HFA 90 2-04 PUFFS ity of mcg/actuati 00:00: EVERY 4 Abdifatah as on inhaler 00 HOURS Medic al NEEDED FOR Branch WHEEZING OR SHORTNESS OF BREATH FOR UP TO 7 DAYS [facility] 2017 Yes [id number] INHALE 3 Univers HFA 90 2-04 PUFFS ity of mcg/actuati 00:00: EVERY 4 Abdifatah as on inhaler 00 HOURS Medic al NEEDED FOR Branch WHEEZING OR SHORTNESS OF BREATH FOR UP TO 7 DAYS [facility] 2017 Yes [id number] INHALE 3 Univers HFA 90 2-04 PUFFS ity of mcg/actuati 00:00: EVERY 4 Abdifatah as on inhaler 00 HOURS Medic al NEEDED FOR Branch WHEEZING OR SHORTNESS OF BREATH FOR UP TO 7 DAYS [facility] 2017 Yes [id number] INHALE 3 Univers HFA 90 2-04 PUFFS [...] of 2 mg tablet 00:00: [place] 00 [facility] Branch benztropine 2016-0 Yes Univer s (COGENTIN) 4-28 ity of 2 mg tablet 00:00: [place] 00 [facility] Branch benztropine 2016-0 Yes Univer s (COGENTIN) 4-28 ity of 2 mg tablet 00:00: [place] 00 [facility] Branch benztropine 2016-0 Yes Univer s (COGENTIN) 4-28 ity of 2 mg tablet 00:00: [place] 00 [facility] benztropine 2016-0 Yes Univer s (COGENTIN) 4-28 ity of 2 mg tablet 00:00: [place] [facility] benztropine 2016-0 Yes Univer s (COGENTIN) 4-28 ity of 2 mg tablet 00:00: [place] [facility] benztropine 2016-0 Yes Univer s (COGENTIN) 4-28 ity of 2 mg tablet 00:00: [place] 00 [facility] benztropine 2016-0 Yes Univer s (COGENTIN) 4-28 ity of 2 mg tablet 00:00: [place] 00 [facility] benztropine 2016-0 Yes Shannon s (COGENTIN) 4-28 ity of 2 mg tablet 00:00: [place] 00 [facility] benztropine 2016-0 Yes Edier s (COGENTIN) 4-28 ity of 2 mg tablet 00:00: [address] benztropine 2016-0 Yes Shannon s (COGENTIN) 4-28 ity of 2 mg tablet 00:00: [place] 00 [facility] Immunizations Ordered Immunization Filled Immunization Date Status Commen ts Source Name Name Influenza Virus 2017-05-31 Completed Universit y of Vaccine Quad IM 3+ 00:00:00 [facility] Influenza Virus 2017-05-31 Completed Universit y of Vaccine Quad IM 3+ 00:00:00 [facility] Influenza Virus 2017-05-31 Completed Universit y of Vaccine Quad IM 3+ 00:00:00 [facility] Influenza Virus 2017-05-31 Completed Universit y of Vaccine Quad IM 3+ 00:00:00 [facility] Influenza Virus 2017-05-31 Completed Universit y of Vaccine Quad IM 3+ 00:00:00 [facility] Influenza Virus 2017-05-31 Completed Universit y of Vaccine Quad IM 3+ 00:00:00 [facility] Influenza Virus 2017-05-31 Completed Universit y of Vaccine Quad IM 3+ 00:00:00 [facility] Influenza Virus 2017-05-31 Completed Universit y of Vaccine Quad IM 3+ 00:00:00 [facility] Influenza Virus 2017-05-31 Completed Universit y of Vaccine Quad IM 3+ 00:00:00 [facility] Influenza Virus 2017-05-31 Completed Universit y of Vaccine Quad IM 3+ 00:00:00 [facility] Influenza Virus 2017-05-31 Completed Universit y of Vaccine Quad IM 3+ 00:00:00 [facility] HPV9 2015-10-23 Completed University 00:00:00 [facility] Meningococcal 2015-10-23 Completed University of Polysaccharide 00:00:00 [facility] arpan (groups A, C, Y and Branc h W-135) conjugate vaccine (MCV4P) HEPATITIS A 2015-10-23 Completed University 00:00:00 [facility] Meningococcal B, OMV 2015-10-23 Completed Univ ersity of 00:00:00 [facility] Branch HPV9 2015-10-23 Completed University of 00:00:00 [facility] Meningococcal 2015-10-23 Completed University of Polysaccharide 00:00:00 [place] Med[facility] arpan (groups A, C, Y and Branc h W-135) conjugate vaccine (MCV4P) HEPATITIS A 2015-10-23 Completed University of 00:00:00 [facility] Meningococcal B, OMV 2015-10-23 Completed Univ ersity of 00:00:00 [facility] HPV9 2015-10-23 Completed University of 00:00:00 [facility] Meningococcal 2015-10-23 Completed University of Polysaccharide 00:00:00 [place] Med[facility] arpan (groups A, C, Y and Branc h W-135) conjugate vaccine (MCV4P) HEPATITIS A 2015-10-23 Completed University of 00:00:00 [facility] Meningococcal B, OMV 2015-10-23 Completed Univ ersity of 00:00:00 [facility] HPV9 2015-10-23 Completed University of 00:00:00 [facility] Meningococcal 2015-10-23 Completed University of Polysaccharide 00:00:00 [place] Med[facility] arpan (groups A, C, Y and Branc h W-135) conjugate vaccine (MCV4P) HEPATITIS A 2015-10-23 Completed University of 00:00:00 [facility] Meningococcal B, OMV 2015-10-23 Completed Univ ersity of 00:00:00 [facility] HPV9 2015-10-23 Completed University of 00:00:00 [facility] Meningococcal 2015-10-23 Completed University of Polysaccharide 00:00:00 [place] Med[facility] arpan (groups A, C, Y and Branc h W-135) conjugate vaccine (MCV4P) HEPATITIS A 2015-10-23 Completed University of 00:00:00 [facility] Meningococcal B, OMV 2015-10-23 Completed Univ ersity of 00:00:00 [facility] HPV9 2015-10-23 Completed University of 00:00:00 [facility] Meningococcal 2015-10-23 Completed University of Polysaccharide 00:00:00 [place] Medi arpan (groups A, C, Y and Branc h W-135) conjugate vaccine (MCV4P) HEPATITIS A 2015-10-23 Completed University of 00:00:00 [facility] Meningococcal B, OMV 2015-10-23 Completed Univ ersity of 00:00:00 [facility] HPV9 2015-10-23 Completed University of 00:00:00 [facility] Meningococcal 2015-10-23 Completed University of Polysaccharide 00:00:00 [place] Medi arpan (groups A, C, Y and Branc h W-135) conjugate vaccine (MCV4P) HEPATITIS A 2015-10-23 Completed University of 00:00:00 [facility] Meningococcal B, OMV 2015-10-23 Completed Univ ersity of 00:00:00 [facility] HPV9 2015-10-23 Completed University of 00:00:00 [facility] Meningococcal 2015-10-23 Completed University of Polysaccharide 00:00:00 [place] Medi arpan (groups A, C, Y and Branc h W-135) conjugate vaccine (MCV4P) HEPATITIS A 2015-10-23 Completed University of 00:00:00 [facility] Meningococcal B, OMV 2015-10-23 Completed Univ ersity of 00:00:00 [facility] HPV9 2015-10-23 Completed University of 00:00:00 [facility] Meningococcal 2015-10-23 Completed University of Polysaccharide 00:00:00 [place] Med[facility] arpan (groups A, C, Y and Branc h W-135) conjugate vaccine (MCV4P) HEPATITIS A 2015-10-23 Completed University of 00:00:00 [facility] Meningococcal B, OMV 2015-10-23 Completed Univ ersity of 00:00:00 [facility] HPV9 2015-10-23 Completed University of 00:00:00 [facility] Meningococcal 2015-10-23 Completed University of Polysaccharide 00:00:00 [place] Medi arpan (groups A, C, Y and Branc h W-135) conjugate vaccine (MCV4P) HEPATITIS A 2015-10-23 Completed University of 00:00:00 [facility] Meningococcal B, OMV 2015-10-23 Completed Univ ersity of 00:00:00 [facility] HPV9 2015-10-23 Completed University of 00:00:00 [facility] Meningococcal 2015-10-23 Completed University of Polysaccharide 00:00:00 [place] Medi arpan (groups A, C, Y and Branc h W-135) conjugate vaccine (MCV4P) HEPATITIS A 2015-10-23 Completed University of 00:00:00 [facility] Meningococcal B, OMV 2015-10-23 Completed Univ ersity of 00:00:00 [place] [facility] HEPATITIS A 2014-11-20 Completed University [...] Branch HPV 2014-11-20 Completed University of 00:00:00 [place] [facility] HEPATITIS A 2014-11-20 Completed University of 00:00:00 [place] [facility] HPV 2014-11-20 Completed University of 00:00:00 [facility] Vital Signs Vital Name Observation Time Observation Value Comments Source Systolic blood 2020-02-06 18:51:00 139 mm[Hg] Univer sity of [place] [facility] Diastolic blood 2020-02-06 18:51:00 87 mm[Hg] Unive rsity of [place] [facility] Heart rate 2020-02-06 18:51:00 109 /min Universi ty of [place] [facility] Body height 2020-02-06 18:51:00 190.5 cm Universi ty of [place] [facility] Body weight 2020-02-06 18:51:00 116.574 kg Universi ty of [place] [facility] BMI 2020-02-06 18:51:00 32.12 kg/m2 [facility]i ty [facility] [place] [facility] Systolic blood 2020-01-14 18:41:00 137 mm[Hg] Univer sity of [place] [facility] Diastolic blood 2020-01-14 18:41:00 86 mm[Hg] Unive rsity of [place] [facility] Heart rate 2020-01-14 18:41:00 111 /min Universi ty [facility] [place] [facility] Body height 2020-01-14 18:30:00 190.5 cm Universi ty of [place] [facility] Body weight 2020-01-14 18:30:00 116.574 kg Universi ty of [place] [facility] BMI 2020-01-14 18:30:00 32.12 kg/m2 Universi ty of [facility] Systolic blood 2020-01-07 20:06:00 135 mm[Hg] Univer sity of [place] pressure Medical Branch Diastolic blood 2020-01-07 20:06:00 82 mm[Hg] Unive rsity of [facility] Medical Branch Heart rate 2020-01-07 20:06:00 90 /min Universi ty of [place] [facility] Body height 2020-01-07 20:06:00 190.5 cm Universi ty of [place] [facility] Body weight 2020-01-07 20:06:00 116.574 kg stated Universi ty of [facility] BMI 2020-01-07 20:06:00 32.12 kg/m2 Universi ty of [facility] Procedures Procedure Date / Time Performed Performing Clinician Sourc e XR ELBOW <3 VW LEFT 2020-02-06 19:07:39 Lesli Duarte Universi ty of [facility] XR ELBOW <3 VW LEFT 2020-01-14 18:41:10 Lesli Duarte Universi ty of [facility] EXTERNAL PROVIDER 2020-01-09 05:01:00 Doctor Unassigned, No [facility] RECORDS Name Medical Branch Encounters Start End Encounter Admission Attending Care Care Encounter Source Date/Time Date/Time Type Type Clinicians Facility Department ID 2020-08-29 2020-08-29 Outpatient [facility] [id number] [facility] 14:50:00 14:50:00 [id number] ity of [facility] 2020-08-29 2020-08-29 Outpatient [facility] [id number] Univers 14:50:00 14:50:00 ity of [facility] 2020-08-08 2020-08-08 Outpatient [facility] [id number] Univers 14:55:00 14:55:00 ity of [facility] 2020-02-06 2020-02-06 [facility] [id number] Univers 14:07:38 23:59:00 Encounter [facility] [id number] ity of Surgical [id number] Abdifatah as Specialti [id number] Me dical es 809 [facility] 2020-02-06 2020-02-06 Office [facility] [id number] Univers 13:42:49 13:57:49 Visit [facility] [id number] it y of Surgical [id number] Abdifatah as Specialti [id number] Me dical es 198 [facility] 2020-02-06 2020-02-06 Outpatient R [facility] [id number] Univers 13:45:00 13:45:00 LESLI [id number] ity of [facility] 2020-02-06 2020-02-06 Outpatient R [facility] [id number] Univers 13:45:00 13:45:00 LESLI ity of [facility] 2020-02-06 2020-02-06 Letter [facility] [id number] Univers 00:00:00 00:00:00 (Out) [facility] [id number] it y of Surgical [id number] Abdifatah as Specialti [id number] Me dical es 198 [facility] 2020-01-14 2020-01-14 [facility] [id number] Univers 13:41:08 23:59:00 Encounter [facility] [id number] ity of Surgical [id number] Abdifatah as Specialti [id number] Me dical es 809 [facility] 2020-01-14 2020-01-14 [facility] [id number] Univers 13:29:01 13:44:01 Visit [facility] [id number] it y of Surgical [id number] Abdifatah as Specialti [id number] [place] dical es 198 [facility] 2020-01-14 2020-01-14 [facility] [id number] Univers 13:30:00 13:30:00 LESLI [id number] ity [facility] 2020-01-14 2020-01-14 [facility] [id number] Univers 13:30:00 13:30:00 [facility] 2020-01-14 2020-01-14 [facility] [id number] Univers 00:00:00 00:00:00 (Out) [facility] [id number] it y of Surgical [id number] Abdifatah as Specialti [id number] [place] dical es 198 [facility] 2020-01-09 2020-01-09 Orders Doctor BRAD [id number] Univers 00:00:00 00:00:00 Only Unassigned, CHAVO [id number] ity of [place] [facility] [id number] Abdifatah as [id number] [facility] 00[address] [place] 2020-01-07 2020-01-07 [facility] [id number] Univers 14:44:46 16:05:00 Visit [facility] [id number] it y of Surgical [id number] Abdifatah as Specialti [phone] [place] dical es 198 [facility] 2020-01-07 2020-01-07 [facility] [id number] Univers 14:30:00 14:30:00 [facility] Results Test Description Test Time Test Comments Results Result Sourc e Comments XR ELBOW <3 VW 2020-02-06 His radial head Unive rsity of LEFT 19:18:53 fracture shows [facility] arpan excellent signs Branch of callus formation there was no displacement his radial capitellar joint has a normal spacing. XR ELBOW <3 VW 2020-01-14 Radial head Universit y of LEFT 18:55:52 fracture remains [place] dichi in normal Branch alignment he has a balance between the radial head and the capitellum
--- NOTE | 2022-02-17 15:03 | ER ---
Nurse's Notes [facility] Name: Lele Fleming Age: 22 yrs Sex: Male : 2000 Arrival Date: 02/17/2022 Time: 13:33 Bed 12 Private MD: Diagnosis: Acute pharyngitis, unspecified Presentation: 02/17 13:45 Chief complaint: Patient states: Pt reports bilateral lower jaw pain and sore throat x2 kb3 days with associated runny nose and dry cough.. Reports pain with swallowing and eating. 13:45 Coronavirus screen: Vaccine status: Patient reports receiving the 2nd dose of the covid kb3 vaccine. Client denies travel out of the [place] in the last 14 days. Coronavirus screen: congestion, cough unrelated to allergies, sore throat. Ebola Screen: Patient negative for fever greater than or equal to 101.5 degrees Fahrenheit, and additional compatible Ebola Virus Disease symptoms Patient denies exposure to infectious person. Patient denies travel to an Ebola-affected area in the 21 days before illness onset. No symptoms or risks identified at this time. Initial Sepsis Screen: Does the patient meet any 2 criteria? No. Patient's initial sepsis screen is negative. Does the patient have a suspected source of infection? No. Patient's initial sepsis screen is negative. Risk Assessment: Do you want to hurt yourself or someone else? Patient reports no desire to harm self or others. Onset of symptoms was February 15, 2022. 13:45 Method Of Arrival: Ambulatory kb3 13:45 Acuity: TAD 4 kb3 Triage Assessment: 13:57 General: Appears in no apparent distress. Behavior is calm, cooperative. Pain: kb3 Complains of pain in right jaw and left jaw Pain does not radiate. Pain radiates to neck Pain currently is 5 out of 10 on a pain scale. Quality of pain is described as Sore. EENT: Throat is pink. Historical: - Allergies: 13:57 No Known Allergies; kb3 - Home Meds: 13:57 None [Active]; kb3 - PMHx: 13:57 Asthma; kb3 - PSHx: 13:57 None; kb3 - Immunization history:: Adult Immunizations up to date, Client reports receiving the 2nd dose of the Covid vaccine, Last tetanus immunization: up to date. - Social history:: Smoking status: Patient denies any tobacco usage or history of. Screenin:00 Abuse screen: Denies threats or abuse. Denies injuries from another. Nutritional kb3 screening: No deficits noted. Tuberculosis screening: No symptoms or risk factors identified. Fall Risk None identified. Assessment: 14:00 General: See triage note. Respiratory: Airway is patent Respiratory effort is even, kb3 unlabored, Breath sounds are clear bilaterally. 14:00 General:. kb3 Vital Signs: 13:45 BP 131 / 98; Pulse 90; Resp 16; Temp 98.4; Pulse Ox 97% ; Weight 122.47 kg; Height 6 kb3 ft. 3 in. (190.50 cm); Pain 6/10; 15:20 BP 122 / 90; Pulse 93; Resp 16; Pulse Ox 98% ; kb3 13:45 Body Mass Index 33.75 (122.47 kg, 190.50 cm) kb3 ED Course: 13:33 Patient arrived in ED. rg4 13:36 Germain Cheatham PA [facility] renetta 13:36 Pineda Robins MD is Attending Physician. rneetta 13:48 Precious Jaquez, LYNN is Primary Nurse. kb3 13:57 Triage completed. kb3 13:57 Arm band placed on right wrist. kb3 14:00 Patient has correct armband on for positive identification. Bed in low position. Call kb3 light in reach. 14:00 No provider procedures requiring assistance completed. Patient did not have IV access kb3 during this emergency room visit. Administered Medications: 15:10 Drug: Decadron (dexamethasone) 10 mg Route: IM; Site: left deltoid; kb3 15:20 Follow up: Response: No adverse reaction kb3 Medication: 14:00 VIS not applicable for this client. kb3 Outcome: 15:02 Discharge ordered by . [facility] 15:20 Discharged to home ambulatory. kb3 15:20 Condition: stable 15:20 Discharge instructions given to patient, Instructed on discharge instructions, follow up and referral plans. medication usage, Demonstrated understanding of instructions, follow-up care, medications, Prescriptions given X 2. 15:21 Patient left the ED. kb3 Signatures: Germain Cheatham PA PA jmm Garcia, Rubi rg4 Precious Jaquez, RN RN kb3
--- NOTE | 2022-02-17 15:03 | EDPHYS ---
Physician Documentation [facility] Name: Lele Fleming Age: 22 yrs Sex: Male : 2000 Arrival Date: 02/17/2022 Time: 13:33 Bed 12 Private MD: ED Physician Pineda Robins HPI: 02/17 15:00 This 22 yrs old Male presents to ER via Ambulatory with complaints of Mouth Problem, jmm Sore Throat. 15:00 The patient presents with pain. Onset: The symptoms/episode began/occurred gradually. jmm 15:00 Duration: The symptoms are continuous. Modifying factors: The symptoms are alleviated jmm by nothing, the symptoms are aggravated by swallowing. Associated signs and symptoms: Pertinent positives: pain, Pertinent negatives: fever. This is a 22 year old male with a history of asthma that presents to the ED with complaints of sore throat, cough, beginning 2 days ago. Denies fever. . Historical: - Allergies: 13:57 No Known Allergies; kb3 - Home Meds: 13:57 None [Active]; kb3 - PMHx: 13:57 Asthma; kb3 - PSHx: 13:57 None; kb3 - Immunization history:: Adult Immunizations up to date, Client reports receiving the 2nd dose of the Covid vaccine, Last tetanus immunization: up to date. - Social history:: Smoking status: Patient denies any tobacco usage or history of. ROS: 15:00 Constitutional: Positive for body aches, chills. jmm 15:00 ENT: Positive for sore throat. 15:00 Respiratory: Positive for cough. 15:00 All other systems are negative. Exam: 15:00 Constitutional: This is a well developed, well nourished patient who is awake, alert, jmm and in no acute distress. Head/Face: atraumatic. Eyes: EOMI, no conjunctival erythema appreciated 15:00 Neck: Trachea midline, Supple Chest/axilla: Normal chest wall appearance and motion. Cardiovascular: Regular rate and rhythm. No edema appreciated 15:00 Abdomen/GI: Non distended Back: Normal ROM Skin: General appearance color normal MS/ Extremity: Moves all extremities, no obvious deformities appreciated, no edema noted to the lower extremities Neuro: Awake and alert Psych: Behavior is normal, Mood is normal, Patient is cooperative and pleasant 15:00 ENT: Posterior pharynx: erythema, that is mild. 15:00 Respiratory: the patient does not display signs of respiratory distress, Respirations: Breath sounds: are clear throughout. Vital Signs: 13:45 BP 131 / 98; Pulse 90; Resp 16; Temp 98.4; Pulse Ox 97% ; Weight 122.47 kg; Height 6 kb3 ft. 3 in. (190.50 cm); Pain 6/10; 15:20 BP 122 / 90; Pulse 93; Resp 16; Pulse Ox 98% ; kb3 13:45 Body Mass Index 33.75 (122.47 kg, 190.50 cm) kb3 MDM: 13:51 Patient medically screened. [facility] [place] 15:01 Data reviewed: vital signs, nurses notes. Counseling: I had a detailed discussion with esther the patient and/or guardian regarding: the historical points, exam findings, and any diagnostic results supporting the discharge/admit diagnosis, lab results, the need for outpatient follow up, to return to the emergency department if symptoms worsen or persist or if there are any questions or concerns that arise at home. 02/17 13:59 Order name: Strep; Complete Time: 14:53 [facility] [place] 02/17 13:59 Order name: SARS-COV-2 RT PCR (Document "Date of Onset" if Symptomatic); Complete Time: [facility] [place] 14:56 02/17 13:59 Order name: Influenza Screen (a \\T\\ B); Complete Time: 14:53 [facility] [place] 02/17 14:53 Order name: Throat Culture EDMS Administered Medications: 15:10 Drug: Decadron (dexamethasone) 10 mg Route: IM; Site: left deltoid; kb3 15:20 Follow up: Response: No adverse reaction kb3 Disposition: 15:58 PA/MENDER [employer]'s history reviewed, patient interviewed, and examined. I agree with assessment [id number] and care plan and confirm the diagnosis (es) above. Attestation: The patient's history, exam findings, diagnostics, and a summary of any interventions or procedures was reviewed in detail with Germain JURADO. Disposition Summary: 02/17/22 15:02 Discharge Ordered Location: Home [facility] [place] Condition: Stable [facility] [place] Diagnosis - Acute pharyngitis, unspecified [facility] [place] Followup: [facility] [place] - With: Private Physician - When: 2 - 3 days - Reason: Recheck today's complaints, Continuance of care, Re-evaluation by your physician Discharge Instructions: - Discharge Summary Sheet jmm - Pharyngitis jm Forms: - Medication Reconciliation Form jmm - Thank You Letter jmm - Antibiotic Education jmm - Prescription Opioid Use jmm - Work release form kb3 Prescriptions: - cefdinir 300 mg Oral capsule - take 1 capsule by ORAL route every 12 hours for 10 days; 20 capsule; Refills: jmm 0, Product Selection Permitted - albuterol sulfate 90 mcg/actuation Inhalation HFA aerosol inhaler - inhale 2 puff by INHALATION route every 4 hours; 1 Pump; Refills: 0, Product jmm Selection Permitted Signatures: Dispatcher [employer] EDGermain Mckay PA PA jmm Rosillo, Jose, MD MD [id number] Precious Jaquez, RN RN kb3
[2022-02-17] MEDS ORDERED: dexAMETHasone 10 MG/ML VIAL ONE (15:10)
[2022-02-18 18:29] VITALS: TEMP 98.4
[2022-02-18 18:30] VITALS: BP 122/90; O2SAT 98
== END 2022-02-17 15:21 | disposition home or self-care (01) ==
LOC: ER 13:28
DX: J02.9 Acute pharyngitis, unspecified (principal); R05.9 Cough, unspecified; Z20.822 Contact with and (suspected) exposure to COVID-19
CPT/HCPCS: 87070; 87081; 87804 ×2; 96372; 99283; U0003; J1100